=== PATIENT | female | born 1950 | race African-American/Black ===

== ENCOUNTER 2021-08-19 02:47 | Inpatient (IN) | payer MEDICARE ==
[2021-08-19] MEDS ORDERED: hydrALAZINE 20 MG/ML VIAL SLOW IVP PRN (05:01)
[2021-08-19] MEDS ORDERED: Promethazine HCl 25 MG/ML VIAL IM PRN (05:01)
[2021-08-19] MEDS ORDERED: Ondansetron PF 4 MG/2 ML Vial IVP PRN (05:01)
[2021-08-19] MEDS ORDERED: Ondansetron ODT 4 MG TAB PO PRN (05:01)
[2021-08-19] MEDS ORDERED: Cyclobenzaprine 10 MG TAB PO PRN (05:06)
[2021-08-19] MEDS ORDERED: Morphine 4 MG/ML VIAL SLOW IVP PRN (05:09)
[2021-08-19] MEDS ORDERED: Ibuprofen 200 MG TAB PO PRN (05:10)
[2021-08-19 05:15] VITALS: BMI 31.7
[2021-08-19] MEDS ORDERED: Sodium Chloride 0.9% 1,000 ML IV SCH (05:15)
[2021-08-19 05:39] LABS: #Lymphocytes 1.7 thou/uL (1.20-3.40); #Monocytes 0.7 thou/uL (0.11-0.59); #Neutrophils 6.8 thou/uL (1.40-6.50); %Basophils 0.5 % (0.0-1.0); %Eosinophils 0.1 % (0.0-10.0); %Lymphocytes 18.5 % (21.0-51.0); %Monocytes 7.2 % (0.0-10.0); %Neutrophils 73.7 % (42.0-75.0); Hemoglobin 13.2 g/dL (12.0-16.0); Mean Corpuscular HGB CONC 33.4 g/dL (32.0-36.0); Mean Corpuscular Hemoglobin 30.1 pg (27.0-31.0); Mean Corpuscular Volume 90.4 fL (78.0-98.0); Mean Platelet Volume 8.5 fL (7.4-10.4); Platelet Count 188 thou/uL (130-400); RBC Distribution Width 12.4 % (11.5-14.5); Red Blood Cell (RBC) Count 4.39 mill/uL (4.20-5.40); White Blood Cell (WBC) Count 9.2 thou/uL (4.8-10.8)
[2021-08-19 05:59] LABS: Anion Gap 15 mmol/L (10-20); BUN (Urea Nitrogen) 12 mg/dL (9.8-20.1); Calc. Creatinine Clearance 99 mL/min (70-130); Carbon Dioxide 25 mmol/L (23-31); Chloride 107 mmol/L (98-107); Glucose 93 mg/dL (83-110); Magnesium 1.8 mg/dL (1.6-2.6); Phosphorus 3.1 mg/dL (2.3-4.7); Potassium 4.5 mmol/L (3.5-5.1); Sodium 142 mmol/L (136-145)
[2021-08-19] MEDS: Acetaminophen 500 MG TAB PO SCH ×4 (05:59→23:34)
[2021-08-19 06:01] LABS: INR-International Normal Ratio 1.1; PTT 28.3 sec (22.9-36.1); Prothrombin Time 13.9 sec (12.0-14.7)
[2021-08-19] MEDS: Senokot S 8.6-50 MG TAB PO SCH ×2 (08:19→20:36)
[2021-08-19] MEDS: Polyethylene Glycol 3350 17 GM Packet PO SCH (08:19)
[2021-08-19] MEDS: traMADol HCl 50 MG TAB PO PRN (08:26)
[2021-08-19] MEDS: Famotidine/PF 20 mg/2ml Vial SLOW IVP SCH ×2 (08:27→20:36)
[2021-08-19] MEDS ORDERED: CEFAZOLIN 2 GM in Premix Bag 1 BAG IVPB SCH (08:30)
[2021-08-19] MEDS ORDERED: ceFAZolin 2 GM/DEX 5% 100 ML BAG ONE (12:31)
[2021-08-19] MEDS ORDERED: Fentanyl 100 MCG/2 ML VIAL ONE ×2 (12:44→13:55)
[2021-08-19] MEDS ORDERED: SUGAMMADEX SODIUM 200 MG/2 ML VIAL ONE (12:45)
[2021-08-19] MEDS ORDERED: Famotidine/PF 20 mg/2ml Vial ONE (13:02)
[2021-08-19] MEDS ORDERED: Bupivacaine PF 0.5% 30 ML VIAL ONE (14:05)
[2021-08-19] MEDS ORDERED: HYDROmorphone 2 MG/ML VIAL ONE (14:08)
[2021-08-19] MEDS: ceFAZolin Sodium/D5W 2 GM in Premix Bag 1 BAG IVPB SCH (20:37)
[2021-08-20] MEDS: ceFAZolin Sodium/D5W 2 GM in Premix Bag 1 BAG IVPB SCH (04:28)
[2021-08-20] MEDS: Acetaminophen 500 MG TAB PO SCH ×2 (05:58→12:20)
[2021-08-20 08:20] VITALS: TEMP 97.8
[2021-08-20] MEDS: Senokot S 8.6-50 MG TAB PO SCH (08:40)
[2021-08-20] MEDS: Famotidine/PF 20 mg/2ml Vial SLOW IVP SCH (08:40)
[2021-08-20] MEDS: traMADol HCl 50 MG TAB PO PRN ×2 (08:40→16:19)
[2021-08-20] MEDS: Polyethylene Glycol 3350 17 GM Packet PO SCH (08:40)
[2021-08-20 16:55] VITALS: BP 154/86
[2021-08-21] MEDS ORDERED: Lisinopril 20 MG TAB PO SCH (09:00)
== END 2021-08-20 18:22 | disposition home or self-care (01) | DRG 494 ==
LOC: SJJU 02:47
PROVIDERS: ADMIT Specialist; ATTEND Surgery
PROC: 0QSK04Z Reposition Left Fibula with Internal Fixation Device, Open Approach (ICD-10-PCS; principal; 2021-08-19)
PROC: 0QSH04Z Reposition Left Tibia with Internal Fixation Device, Open Approach (ICD-10-PCS; 2021-08-19)
DX: S82.842A Displaced bimalleolar fracture of left lower leg, initial encounter for closed fracture (principal); M19.90 Unspecified osteoarthritis, unspecified site; I10 Essential (primary) hypertension; Z96.643 Presence of artificial hip joint, bilateral; X50.1XXA Overexertion from prolonged static or awkward postures, initial encounter; Z79.899 Other long term (current) drug therapy
CPT/HCPCS: 36415; 76000; 83735; 84100; 86850; 86900; 86901; C1713; C1874; J1170; J3010; J7050; S0020; S0028